=== PATIENT | female | born 1965 | race Caucasian/White ===

== ENCOUNTER 2020-07-21 12:45 | Outpatient (CLI) | payer OTHER, SELFPAY ==
--- NOTE | 2020-07-21 12:49 | ECG_ITS ---
Measurements Intervals [place] Rate: 76 P: 33 DE: 165 QRS: 51 QRSD: 93 T: 58 QT: 406 QTc: 457 Interpretive Statements SINUS RHYTHM BASELINE ARTIFACT- I, II, AVR, AVL NORMAL ECG Electronically Signed On 07-21-2020 12:59:32 [employer] by Philip Sousa D.O.
== END 2020-07-21 12:46 | disposition home or self-care (01) ==
LOC: ANHSURGERY 12:49
PROVIDERS: PCP Nurse Practitioner Family; Visit Provider Surgery Plastic and Reconstructive Surgery
DX: Z01.810 Encounter for preprocedural cardiovascular examination (principal); E78.00 Pure hypercholesterolemia, unspecified
CPT/HCPCS: 93005

== ENCOUNTER 2020-07-26 00:17 | Outpatient (CLI) | payer OTHER, SELFPAY ==
[2020-07-26 20:45] LABS: SARS-CoV-2 RNA PCR Negative
== END 2020-07-26 00:18 | disposition home or self-care (01) ==
LOC: ANHCOVIDDT 00:17
PROVIDERS: PCP Nurse Practitioner Family; Visit Provider Surgery Plastic and Reconstructive Surgery
DX: Z01.812 Encounter for preprocedural laboratory examination (principal); Z11.59 Encounter for screening for other viral diseases
CPT/HCPCS: 87635; C9803; U0003

== ENCOUNTER 2020-07-29 00:35 | Day surgery (SDC) | payer OTHER, SELFPAY ==
[2020-07-20 14:49] VITALS: BMI 23.1
[2020-07-29] VITALS (12 sets, daily range): BP systolic 113–146; BP diastolic 60–88; PULSE 74–112; RESP 10–18; TEMP 35.8–36.3; O2SAT 96–100
[2020-07-29 06:26] LABS: Urine Cotinine NEGATIVE
[2020-07-29] MEDS: LACTATED RINGERS 1,000 ML 30 ML IV CONT ×2 (06:30→10:22)
--- NOTE | 2020-07-29 06:59 | WPDANESEPPF ---
Anes - Initial Pre Proc Eval Procedure: Operation Date: 07/29/20 07:30 Proposed Procedures p Abdominal Liposuction - Raf Clemens MD s Labiaplasty - Raf Clemens MD Date/Time: 07/29/20 06:59 Surgeon: Raf Clemens MD Pre Op Diagnosis: Excess Adipose Tissue Patient Data Age: 55 Gender: F Height: 5 ft 4 in Weight: 62.5 kg Last Vital Signs Temp 36.3 C L 07/29/20 06:14 Pulse 74 07/29/20 06:14 Resp 16 07/29/20 06:14 BP 113/60 07/29/20 06:14 Pulse Ox 100 07/29/20 06:14 Allergies Allergy/AdvReac Type Severity Reaction Status Date / Time No Known Allergies Allergy Unverified 07/20/20 14:46 Home Medications Medication Instructions Recorded Confirmed Type atorvastatin 10 mg tablet 10 mg PO DAILY 11/03/19 07/29/20 History citalopram 20 mg tablet 20 mg PO HS 11/03/19 07/29/20 History levothyroxine 75 mcg tablet 75 mcg PO DAILY 11/03/19 07/29/20 History omeprazole 40 mg capsule,delayed 40 mg PO DAILY 11/03/19 07/29/20 History release docusate sodium 100 mg capsule 100 mg PO DAILY #14 cap 07/15/20 07/20/20 Rx oxycodone-acetaminophen 5 mg-325 1 tablet PO Q6H PRN #15 tablet 07/16/20 07/20/20 Rx mg tablet Laboratory Tests 07/29/20 06:11 Cotinine Negative Patient hx anesthesia problems: none Family hx anesthesia problems: none PMFSH Past Medical History Medical History History of throat cancer Thyroid disease Surgical History Surgical History History of appendectomy Social History Social History Smoking status: Never smoker Alcohol intake: never Alcohol use details: STATES MAYBE 1-2 DRINKS A MONTH Substance use: never Living arrangements: with family Spiritual care concerns: No Anes - Eval Final PreProcedure Day of Procedure 07/29/20 06:59 Patient weight: normal Heart: regular rate and rhythm Lungs: clear to auscultation Airway: Mallampati scale class II Neurological: alert and oriented Last oral intake: >/= 8 hours ASA classification: III Emergent: no Anesthetic plan: proceed Anesthesia type and monitoring: general ETT and standard monitoring Informed Consent: The patient's anesthetic plan and its attendant risks and benefits were discussed with the patient/family/POA. Questions were solicited and answers provided to the satisfaction of the patient/family/POA.
--- NOTE | 2020-07-29 07:01 | WPDHPUPDATE1 ---
History and Physical Update Update Date/Time: 07/29/20 07:01 History and Physical has been reviewed, including an updated exam of the patient. There are NO changes in the patient's condition. Risks, benefits, and alternatives have been discussed and questions answered. Patient agrees to proceed with procedure.
--- NOTE | 2020-07-29 07:35 | PM.PROC ---
Procedure Note - Detailed Date of procedure: 07/29/20 Pre-op diagnosis: Excess Adipose Tissue Labia minora hypertrophy Post-op diagnosis: same Procedure performed: 1. Abdominal suction lipectomy 2. Abdominoplasty Description of procedure: Risks, benefits, alternatives were discussed in extensive detail. I want her to be very realistic about the risks involved as well as expectations. Made sure answered all of her questions to her satisfaction. Consent obtained. She was marked in the preoperative holding area with her verification. I want to make sure we are in full agreement of the plan. She was taken to the operating room placed supine on the operating room table. Anesthesia was provided by anesthesiology and she was prepped and draped in a standard sterile fashion circumferentially turning her from side to side. We began the procedure supine. An 11 blade used to make stab incisions and I tumesced with a tumescent solution. Adequate time was given for hemostasis. I then proceeded with modification of S.A.F.E. technique of suction lipectomy using a 4 mm basket cannula in multiple planes and passes. This was completed to a rolling pinch test based on my preoperative planning intraoperative observations as well as volume measurements. During the procedure I did place in the right and left lateral decubitus position to make sure we had good contour. Steri-Strips were placed over the port sites. She was then prepped in a lithotomy position. I marked out the labia plasty. 1% lidocaine with epinephrine was used anesthetize locally. Wedge excision was taken which then extended superior and inferiorly in order to decrease the length of the labia minora. I copiously irrigated with saline solution and verified strict hemostasis. I closed using 2-0 Vicryl followed by 3-0 Monocryl and 4 0 chromic. She was awoken. A garment was placed. She tolerated the procedure well. Taken to PACU without difficulty. Anesthesia: GETA Surgeon: Raf Clemens MD Estimated blood loss (mL): 50 Drains: No Packing: No Pathology: none sent Complications: No immediate complications Condition: stable Disposition: PACU Findings: Suction lipectomy volume 1650cc
[2020-07-29] MEDS: ceFAZolin 2 GM/D5W 50 ML 2 GM/50 ML BAG IVPB (08:11)
--- NOTE | 2020-07-29 08:54 | SUR.OPER ---
Position #1 Right side down 0845. Pillow between legs/right arm on gel padded armboard/hand supinated. Left arm flexed on kathleen stand with full length foam padding x2 palm down. No axilla roll as per Dr Clemens. Held in position per Chau FLOREZ and Steven MARTINEZ.
--- NOTE | 2020-07-29 09:00 | SUR.OPER ---
Left side down at 0902. Pillow between leg. left arm extended on gel padded armboard/palm up. Right arm flexed on full foam padding x2. Palm down. Shoulders neutral position with right and left side turns.
--- NOTE | 2020-07-29 09:24 | SUR.OPER ---
Return to supine position. Arms on gel padded armboards/soft wrist secure on bilateral. Legs straight and body straight alignment. 0918.
[2020-07-29] MEDS: LIDO 1%/EPINEPHRINE 1:100,000 20 ML VIAL 40 ML INFILTRATE (09:39)
[2020-07-29] MEDS: oxyCODONE HCL (*CRX) 5 MG TAB IR PO (12:05)
== END 2020-07-29 13:42 | disposition home or self-care (01) ==
PROVIDERS: PCP Nurse Practitioner Family; Visit Provider Surgery Plastic and Reconstructive Surgery
PROC: (CPT 15877; principal; 2020-07-29 07:30)
PROC: (CPT 15877; 2020-07-29 07:30)
DX: Z41.1 Encounter for cosmetic surgery (principal); E65 Localized adiposity; N90.60 Unspecified hypertrophy of vulva
CPT/HCPCS: 15877; 56620; 80307; A9270; J0171; J0330; J0690; J1100; J2250; J2704; J3010; J7120